=== PATIENT | male | born 1955 | race Two or more races ===

== ENCOUNTER 2017-06-12 07:02 | Outpatient (CLI) | payer OTHER | END 2017-06-12 07:25 | disposition home or self-care (01) | LOC: LAB 07:02 | DX: D50.8 Other iron deficiency anemias (principal); I10 Essential (primary) hypertension; D51.8 Other vitamin B12 deficiency anemias; R71.8 Other abnormality of red blood cells ==

== ENCOUNTER 2018-05-05 06:57 | Outpatient (CLI) | payer OTHER | END 2018-05-05 07:01 | disposition home or self-care (01) | LOC: LAB 06:57 | DX: D64.89 Other specified anemias (principal); N39.0 Urinary tract infection, site not specified; R10.9 Unspecified abdominal pain; E03.8 Other specified hypothyroidism; E78.49 Other hyperlipidemia; R80.8 Other proteinuria; R73.09 Other abnormal glucose; N40.0 Benign prostatic hyperplasia without lower urinary tract symptoms; Z12.5 Encounter for screening for malignant neoplasm of prostate; R73.02 Impaired glucose tolerance (oral); I11.9 Hypertensive heart disease without heart failure; E78.2 Mixed hyperlipidemia; D72.818 Other decreased white blood cell count; D55.0 Anemia due to glucose-6-phosphate dehydrogenase [G6PD] deficiency; E06.3 Autoimmune thyroiditis; D51.0 Vitamin B12 deficiency anemia due to intrinsic factor deficiency; D51.1 Vitamin B12 deficiency anemia due to selective vitamin B12 malabsorption with proteinuria; M1A.09X0 Idiopathic chronic gout, multiple sites, without tophus (tophi); D50.8 Other iron deficiency anemias; D51.8 Other vitamin B12 deficiency anemias; I10 Essential (primary) hypertension; R97.0 Elevated carcinoembryonic antigen [CEA]; R97.8 Other abnormal tumor markers; B20 Human immunodeficiency virus [HIV] disease; B18.8 Other chronic viral hepatitis; C18.9 Malignant neoplasm of colon, unspecified ==

== ENCOUNTER 2018-10-03 07:34 | Outpatient (CLI) | payer OTHER | END 2018-10-03 07:43 | disposition home or self-care (01) | LOC: LAB 07:34 | DX: D55.0 Anemia due to glucose-6-phosphate dehydrogenase [G6PD] deficiency (principal) ==

== ENCOUNTER 2018-10-09 07:32 | Outpatient (CLI) | payer OTHER | END 2018-10-09 07:34 | disposition home or self-care (01) | LOC: TOM 07:32 | DX: D55.0 Anemia due to glucose-6-phosphate dehydrogenase [G6PD] deficiency (principal); D72.818 Other decreased white blood cell count; R97.0 Elevated carcinoembryonic antigen [CEA]; E06.3 Autoimmune thyroiditis; D51.0 Vitamin B12 deficiency anemia due to intrinsic factor deficiency; D51.1 Vitamin B12 deficiency anemia due to selective vitamin B12 malabsorption with proteinuria; M1A.09X0 Idiopathic chronic gout, multiple sites, without tophus (tophi); M33.22 Polymyositis with myopathy ==

== ENCOUNTER 2018-10-27 06:37 | Outpatient (CLI) | payer OTHER | END 2018-10-27 06:56 | disposition home or self-care (01) | LOC: LAB 06:37 | DX: D55.0 Anemia due to glucose-6-phosphate dehydrogenase [G6PD] deficiency (principal); D72.818 Other decreased white blood cell count; R97.0 Elevated carcinoembryonic antigen [CEA]; E06.3 Autoimmune thyroiditis; D51.0 Vitamin B12 deficiency anemia due to intrinsic factor deficiency; D51.1 Vitamin B12 deficiency anemia due to selective vitamin B12 malabsorption with proteinuria; M1A.09X0 Idiopathic chronic gout, multiple sites, without tophus (tophi); M33.22 Polymyositis with myopathy; M35.8 Other specified systemic involvement of connective tissue; M15.8 Other polyosteoarthritis ==

== ENCOUNTER 2019-02-21 07:20 | Outpatient (CLI) | payer OTHER | END 2019-02-21 15:00 | disposition home or self-care (01) | LOC: LAB 07:20 | DX: D55.0 Anemia due to glucose-6-phosphate dehydrogenase [G6PD] deficiency (principal); D72.818 Other decreased white blood cell count; R97.0 Elevated carcinoembryonic antigen [CEA]; E06.3 Autoimmune thyroiditis; D51.0 Vitamin B12 deficiency anemia due to intrinsic factor deficiency; D51.1 Vitamin B12 deficiency anemia due to selective vitamin B12 malabsorption with proteinuria; M1A.09X0 Idiopathic chronic gout, multiple sites, without tophus (tophi); M33.22 Polymyositis with myopathy; D50.8 Other iron deficiency anemias; D51.8 Other vitamin B12 deficiency anemias; I10 Essential (primary) hypertension ==

== ENCOUNTER → 2019-02-26 | Outpatient (CLI) | payer OTHER | END | disposition home or self-care (01) | LOC: TOM 11:30 | DX: D55.0 Anemia due to glucose-6-phosphate dehydrogenase [G6PD] deficiency (principal); D72.818 Other decreased white blood cell count; R97.0 Elevated carcinoembryonic antigen [CEA]; E06.3 Autoimmune thyroiditis; D51.0 Vitamin B12 deficiency anemia due to intrinsic factor deficiency; D51.1 Vitamin B12 deficiency anemia due to selective vitamin B12 malabsorption with proteinuria; M1A.09X0 Idiopathic chronic gout, multiple sites, without tophus (tophi); M33.22 Polymyositis with myopathy; Z86.010 Personal history of colon polyps; K63.5 Polyp of colon ==

== ENCOUNTER 2019-10-05 07:10 | Outpatient (CLI) | payer OTHER | END 2019-10-05 07:20 | disposition home or self-care (01) | LOC: EDBD 07:10 → LAB 07:10 | PROVIDERS: ATTEND Internal Medicine Hematology & Oncology | DX: D50.8 Other iron deficiency anemias (principal); I10 Essential (primary) hypertension; D55.0 Anemia due to glucose-6-phosphate dehydrogenase [G6PD] deficiency; D51.8 Other vitamin B12 deficiency anemias; E03.8 Other specified hypothyroidism; R97.0 Elevated carcinoembryonic antigen [CEA]; R97.8 Other abnormal tumor markers; D72.818 Other decreased white blood cell count; E06.3 Autoimmune thyroiditis; D51.0 Vitamin B12 deficiency anemia due to intrinsic factor deficiency; D51.1 Vitamin B12 deficiency anemia due to selective vitamin B12 malabsorption with proteinuria; M1A.09X0 Idiopathic chronic gout, multiple sites, without tophus (tophi); M33.22 Polymyositis with myopathy; Z86.010 Personal history of colon polyps; K63.5 Polyp of colon ==

== ENCOUNTER → 2020-04-27 06:50 | Outpatient (CLI) | payer OTHER | END | disposition home or self-care (01) | LOC: LAB 06:50 | PROVIDERS: ATTEND Internal Medicine Nephrology | DX: R80.8 Other proteinuria (principal); N18.2 Chronic kidney disease, stage 2 (mild) ==

== ENCOUNTER 2020-04-27 07:31 | Outpatient (CLI) | payer OTHER | END 2020-04-27 07:33 | disposition home or self-care (01) | LOC: SONOGRAMA 07:31 | DX: N40.0 Benign prostatic hyperplasia without lower urinary tract symptoms (principal); I10 Essential (primary) hypertension ==

== ENCOUNTER 2020-04-29 08:38 | Outpatient (CLI) | payer OTHER | END 2020-04-29 08:47 | disposition home or self-care (01) | LOC: LAB 08:38 | DX: I10 Essential (primary) hypertension (principal); R80.8 Other proteinuria ==

== ENCOUNTER 2020-09-30 06:48 | Outpatient (CLI) | payer OTHER | END 2020-09-30 06:55 | disposition home or self-care (01) | LOC: LAB 06:48 | PROVIDERS: ATTEND Internal Medicine Hematology & Oncology | DX: E03.8 Other specified hypothyroidism (principal); Z12.11 Encounter for screening for malignant neoplasm of colon; N40.0 Benign prostatic hyperplasia without lower urinary tract symptoms; D64.89 Other specified anemias; N39.0 Urinary tract infection, site not specified; E55.9 Vitamin D deficiency, unspecified; R73.09 Other abnormal glucose; I10 Essential (primary) hypertension; D50.8 Other iron deficiency anemias; D55.0 Anemia due to glucose-6-phosphate dehydrogenase [G6PD] deficiency; D51.8 Other vitamin B12 deficiency anemias; R97.0 Elevated carcinoembryonic antigen [CEA]; R97.8 Other abnormal tumor markers; D72.818 Other decreased white blood cell count; E06.3 Autoimmune thyroiditis; D51.0 Vitamin B12 deficiency anemia due to intrinsic factor deficiency; D51.1 Vitamin B12 deficiency anemia due to selective vitamin B12 malabsorption with proteinuria; M1A.09X0 Idiopathic chronic gout, multiple sites, without tophus (tophi); M33.22 Polymyositis with myopathy; Z86.010 Personal history of colon polyps; K63.5 Polyp of colon ==

== ENCOUNTER 2020-12-06 07:15 | Outpatient (CLI) | payer OTHER | END 2020-12-06 07:24 | disposition home or self-care (01) | LOC: SONOGRAMA 07:15 → MAMO-SONO 14:45 | DX: N20.0 Calculus of kidney (principal); R10.84 Generalized abdominal pain ==

== ENCOUNTER 2021-11-15 07:13 | Outpatient (CLI) | payer OTHER | END 2021-11-15 07:38 | disposition home or self-care (01) | LOC: LAB 07:13 | PROVIDERS: ATTEND Internal Medicine Hematology & Oncology | DX: D50.8 Other iron deficiency anemias (principal); R79.9 Abnormal finding of blood chemistry, unspecified; I10 Essential (primary) hypertension; R74.02 Elevation of levels of lactic acid dehydrogenase [LDH]; K76.89 Other specified diseases of liver; D55.0 Anemia due to glucose-6-phosphate dehydrogenase [G6PD] deficiency; D51.8 Other vitamin B12 deficiency anemias; E55.9 Vitamin D deficiency, unspecified; E03.8 Other specified hypothyroidism; R97.0 Elevated carcinoembryonic antigen [CEA]; R97.8 Other abnormal tumor markers; R97.20 Elevated prostate specific antigen [PSA]; K63.5 Polyp of colon; Z86.010 Personal history of colon polyps; M23.322 Other meniscus derangements, posterior horn of medial meniscus, left knee; N18.2 Chronic kidney disease, stage 2 (mild); D64.9 Anemia, unspecified; R10.9 Unspecified abdominal pain; E78.5 Hyperlipidemia, unspecified ==